=== PATIENT | female | born 1985 | race Caucasian/White ===

== ENCOUNTER 2022-04-03 08:34 | Outpatient (CLI) | payer OTHER, SELFPAY ==
[2022-04-03 13:52] LABS: Basophils Absolute Auto 0.04 K/uL (0.00-0.30); Basophils Percent Auto 0.5 % (0.0-3.0); Eosinophils Absolute Auto 0.11 K/uL (0.00-0.50); Eosinophils Percent Auto 1.4 % (0.0-7.0); Hematocrit 36.6 % (33.0-51.0); Hemoglobin* 11.5 gm/dL (12.0-16.0); Immature Granulocytes Abs Auto 0.01 K/uL (0.00-0.30); Lymphocytes Absolute Auto 1.89 K/uL (0.90-2.90); Lymphocytes Percent Auto 23.4 % (20-44); Mean Corpuscular HGB Conc 31 gm/dL (32-36); Mean Corpuscular Hemoglobin 26 pg (26-34); Mean Corpuscular Volume 82 fL (80-100); Monocytes Percent Auto 5.6 % (0.0-11.0); Neutrophils Absolute Auto 5.56 K/uL (1.7-7.0); Platelet Count* 432 K/uL (140-440); RDW Coefficient of Variation % 13.6 % (11.5-15.5); Red Blood Count 4.49 m/uL (4.00-5.20); White Blood Count* 8.06 K/uL (4.50-11.00)
[2022-04-03 13:59] LABS: Slide Review Reflex No
[2022-04-03 14:43] LABS: Chloride* 105 mmol/L (96-114)
[2022-04-03 14:44] LABS: Potassium* 4.8 mmol/L (3.6-5.1); Sodium* 137 mmol/L (135-149)
[2022-04-03 14:46] LABS: Carbon Dioxide* 22 mmol/L (20-32); Creatinine* 0.5 mg/dL (0.5-1.5); Estimated Glomerular Filt Rate 123 ml/min
[2022-04-03 14:47] LABS: Blood Urea Nitrogen* 15 mg/dL (5-24); Calcium* 9.4 mg/dL (8.4-10.6); Glucose* 94 mg/dL (60-115)
[2022-04-03 15:18] LABS: Ferritin* 14.4 ng/mL (6.24-137.0)
== END 2022-04-03 08:35 | disposition home or self-care (01) ==
PROVIDERS: PCP Family Medicine; Visit Provider Family Medicine
DX: R53.83 Other fatigue (principal); E03.1 Congenital hypothyroidism without goiter; F41.9 Anxiety disorder, unspecified; L30.1 Dyshidrosis [pompholyx]; G43.009 Migraine without aura, not intractable, without status migrainosus; R40.0 Somnolence
CPT/HCPCS: 80048; 82728; 84443; 85025

== ENCOUNTER 2022-04-26 19:55 | Emergency (ER) | payer OTHER, SELFPAY ==
[2022-04-26 20:02] VITALS: BP 106/71; PULSE 78; RESP 18; TEMP 36.6; O2SAT 99; BMI 31.7
[2022-04-26 20:29] VITALS: O2SAT 99
--- NOTE | 2022-04-26 20:44 | ED_ITS ---
HPI - Dizziness General Chief Complaint: Dizziness/Vertigo Stated Complaint: Hypotension Time Seen by Provider: 04/26/22 20:12 History of Present Illness HPI Narrative: 36-year-old woman presenting to the emergency department with concern appears to be of nearly passing out twice. 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 Some low back pain across the low back subsequently felt rather hot diaphoretic ringing ears very intensely, she also says that her ears always ring little bit but this was much more than usual. Lightheaded nauseated. Was not actually dizzy. Vision was a little bit blurry. Did not have chest pain or shortness of breath. Subsequently also noted a pain in her left lower posterior ribs. This apparently is reproducible and somewhat pleuritic. After this initial episode things settled but then happened again though not with the back pain issue. Low back was started by shifting a little bit; she had been on her feet long period time. In this subsequent episode was also noted to be rather white. At that point was taken to the ambulance. Blood pressures were noted to be low. Blood sugar I believe was 97. Blood pressure systolic was in the 90s and she recalls in the 70s as well. At this point she is feeling much better. Still has that pain in the ribs and sense of almost cramping in her upper anterior thighs. Vision remains just a little bit off. Does struggle with chronic low back pain intermittently as noted. Also ?my bowels hate me?. She would consider herself in her normal pattern at this point. Sounds like has some degree of IBS alternating between constipation and diarrhea. otherwise has been in usual state of health. No cough or cold symptoms recently. No fevers. Is not having any abdominal pain. No frequency dysuria urgency. No hematuria No sense of irregular heartbeats. No Family history of nephrolithiasis Related Data Home Medications Medication Instructions Recorded Confirmed levothyroxine 75 mcg tablet 75 mcg PO DAILY 04/02/22 04/02/22 liothyronine 25 mcg tablet 25 mcg PO QAM 04/02/22 04/02/22 polyethylene glycol 3350 17 17 g PO .Bedtime 04/02/22 04/02/22 gram/dose oral powder psyllium husk 3.4 gram/5.4 gram 1 tbsp PO QDAY 04/02/22 04/02/22 oral powder (Metamucil) sennosides 8.6 mg-docusate sodium 2 PO .Bedtime 04/02/22 04/02/22 50 mg tablet Previous Rx's Medication Instructions Recorded dextroamphetamine-amphetamine ER 20 mg PO QAM #30 caps 02/06/22 20 mg 24hr capsule,extend release (Adderall XR) betamethasone, augmented 0.05 % 1 applic topical BID PRN rash #45 04/03/22 topical ointment (Diprolene grams (augmented)) escitalopram oxalate 20 mg tablet 20 mg PO DAILY #90 tabs 04/03/22 magnesium oxide 400 mg (241.3 mg 400 mg PO DAILY #90 tabs 04/03/22 magnesium) tablet sumatriptan succinate 50 mg tablet 50 - 100 mg PO .Daily as needed 04/09/22 PRN migraine headache #10 tabs rizatriptan 10 mg tablet 10 mg PO Q2H PRN migraine headache 04/10/22 #10 tabs Allergies Allergy/AdvReac Type Severity Reaction Status Date / Time Amoxicillin Allergy Mild Hives Uncoded 04/03/22 08:05 Clavulanate Allergy Mild Hives Uncoded 04/03/22 08:05 Blueberry Flavor Allergy Unknown Unknown Uncoded 04/03/22 08:05 Coffee Flavor Allergy Unknown Unknown Uncoded 04/03/22 08:05 Dairy Allergy Unknown blisters Uncoded 04/03/22 08:05 Review of Systems Status of ROS: Reports: 10 or more systems reviewed and unremarkable except as noted in History and below [facility] Medical History ADHD (attention deficit hyperactivity disorder), inattentive type Congenital hypothyroidism (83) Daytime somnolence Dyshidrotic eczema Generalized anxiety disorder (12/30/12) History of gestational diabetes mellitus (GDM) Irritable bowel syndrome Migraine without aura Prediabetes (2019) Surgical History History of bilateral ligation of fallopian tubes (2010) History of section History of colonoscopy (08/11/15) History of endometrial ablation (2012) History of esophagogastroduodenoscopy (EGD) (05/24/15) History of hysteroscopy (04/20/13) History of nasal septoplasty (06/06/17) History of tonsillectomy and adenoidectomy (06/06/17) 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 NAD. A little tired. Skin is warm and dry. No rash apparent. Well perfused peripherally. Moving all extremities without difficulty. Cranial nerves 2-12 intact. No nystagmus Lungs are clear. Palpating than the back it is in the lower left rib area where she does have a little reproducible discomfort. Pleuritic pain here described. Palpation of the low back-areas of discomfort in the sacroiliac joints Cardiovascular with regular rate and rhythm no murmur rub or gallop identified. Abdomen is overweight soft nontender. Normal bowel sounds. Negative Mustapha's and compression of the hips. Const: Vital Signs, click to edit/add: Vital Signs - 24 hr 04/26/22 20:02 04/26/22 21:05 04/26/22 20:29 Temperature 97.9 F Pulse Rate [Right Pulse Oximeter] 78 Pulse Rate [orthos tatic lying] 74 Pulse Rate [orthos tatic sitting] 77 Pulse Rate [orthos tatic standing] 74 Respiratory Rate 18 Blood Pressure [Ri ght Upper Arm] 106/71 Blood Pressure [or thostatic lying] 118/65 Blood Pressure [or thostatic sitting] 109/65 Blood Pressure [or thostatic standing ] 109/68 Pulse Oximetry 99 99 Oxygen Delivery Me thod Room Air 04/27/22 00:37 04/27/22 00:15 04/26/22 22:30 Temperature 97.9 F 97.9 F 97.9 F Pulse Rate [Right Pulse Oximeter] 84 84 81 Pulse Rate [orthos tatic lying] Pulse Rate [orthos tatic sitting] Pulse Rate [orthos tatic standing] Respiratory Rate 18 18 18 Blood Pressure [Ri ght Upper Arm] 120/66 120/66 101/56 L Blood Pressure [or thostatic lying] Blood Pressure [or thostatic sitting] Blood Pressure [or thostatic standing ] Pulse Oximetry 99 99 Oxygen Delivery Me thod Room Air Room Air Course Course Hospital Course: Initiated on IV fluids. Orthostatics were also done. Was initially subtly dizzy and little woozy perhaps going to sitting/standing but vitals were WNL. Reevaluation(s) Reevaluation #1: Sleepy but overall improved Vital Signs Vital signs: Initial Vital Signs Temperature 97.9 F 04/26/22 20:02 Temperature Source Temporal Artery Scan 04/26/22 20:02 Pulse Rate 78 04/26/22 20:02 Pulse Rhythm 04/26/22 20:02 Pulse Strength 0+ Absent 04/26/22 20:02 Respiratory Rate 18 04/26/22 20:02 Blood Pressure 106/71 04/26/22 20:02 Blood Pressure Mean 82 04/26/22 20:02 Blood Pressure Position Sitting 04/26/22 20:02 Pulse Oximetry 99 04/26/22 20:02 Oxygen Delivery Method 04/26/22 20:02 Vital Signs Temperature 97.9 F 04/26/22 20:02 Pulse Rate 78 04/26/22 20:02 Respiratory Rate 18 04/26/22 20:02 Blood Pressure 106/71 04/26/22 20:02 Pulse Oximetry 99 04/26/22 20:02 Oxygen Delivery Method 04/26/22 20:02 Temperature 97.9 F 04/27/22 00:37 Pulse Rate 84 04/27/22 00:37 Respiratory Rate 18 04/27/22 00:37 Blood Pressure 120/66 04/27/22 00:37 Pulse Oximetry 99 04/27/22 00:15 Oxygen Delivery Method 04/27/22 00:15 MDM - Dizziness MDM Narrative Medical decision making narrative: Suspected possibly vasovagal event related to flare of pain. She notes though that the discomfort she had in her back was less than she has experienced before without difficulty here. EKG reviewed by me rate of 65 in normal sinus. White count is little over 14,000. Trace ketones in urine D-dimer was elevated at 0.7. Pulmonary embolus was in differential. haveno other explanation at this point so proceed with CT scan of chest with IV contrast. Thankfully this is negative. I did review these images personally Medical Records Attestation: I reviewed the patient's medical records. Lab Data Attestation: I reviewed the patient's lab results. Labs: Lab Results 04/26/22 04/26/22 04/26/22 Range/Units 20:31 20:51 20:51 WBC (4.50-11.00) K/uL RBC (4.00-5.20) m/uL Hgb (12.0-16.0) gm/dL Hct (33.0-51.0) % MCV (80-100) fL MCH (26-34) pg MCHC (32-36) gm/dL RDW Coeff of Kristen (11.5-15.5) % Plt Count (140-440) K/uL Neut % (Auto) (42.0-72.0) % Lymph % (Auto) (20-44) % [place] % (Auto) (0.0-11.0) % Eos % (Auto) (0.0-7.0) % Baso % (Auto) (0.0-3.0) % Neut # (Auto) (1.7-7.0) K/uL Lymph # (Auto) (0.90-2.90) K/uL [place] # (Auto) (0.00-0.90) K/UL Eos # (Auto) (0.00-0.50) K/uL Baso # (Auto) (0.00-0.30) K/uL Abs Immat Gran (auto) (0.00-0.30) K/uL D-Dimer Quant (PE/DVT) 0.70 H (0.00-0.50) ug/ml Sodium 134 L (135-149) mmol/L Potassium 3.9 (3.6-5.1) mmol/L Chloride 101 (96-114) mmol/L Carbon Dioxide 22 (20-32) mmol/L BUN 13 (5-24) mg/dL Creatinine 0.7 (0.5-1.5) mg/dL Estimated Creat Clear 102.01 Estimated GFR 113 ml/min Glucose 166 H (60-115) mg/dL Calcium 9.1 (8.4-10.6) mg/dL Magnesium 1.9 (1.5-2.6) mg/dL Troponin I (0.01-0.04) ng/mL C-Reactive Protein 0.7 (0.5-1.0) mg/dL Urine Color Yellow (Yellow) Urine Appearance Clear (Clear) Urine pH 6.0 (5.0-8.5) Ur Specific [place] >= 1.030 (1.000-1.030) Urine Protein Negative (Negative) Urine Glucose (UA) Negative (Negative) Urine Ketones Trace A (Negative) Urine Blood Negative (Negative) Urine Nitrite Negative (Negative) Urine Bilirubin Negative (Negative) Urine Urobilinogen 0.2 (0.2-1.0) Ur Leukocyte Esterase Negative (Negative) Urine RBC 0-2 (0-2) Urine WBC 0-2 (0-5) Ur Squamous Epith Cells Few (None-Few) Urine Bacteria Few A (None) Hyaline Casts Moderate A (None-Few) Urine Mucus Few A (None) SARS-CoV-2 (PCR) (Negative) POC Troponin I (0.01-0.04) ng/ml 04/26/22 04/26/22 04/26/22 Range/Units 20:51 20:51 20:51 WBC 14.07 H (4.50-11.00) K/uL RBC 4.33 (4.00-5.20) m/uL Hgb 11.0 L (12.0-16.0) gm/dL Hct 34.7 (33.0-51.0) % MCV 80 (80-100) fL MCH 25 L (26-34) pg MCHC 32 (32-36) gm/dL RDW Coeff of Kristen 13.4 (11.5-15.5) % Plt Count 381 (140-440) K/uL Neut % (Auto) 82.1 H (42.0-72.0) % Lymph % (Auto) 12.7 L (20-44) % [place] % (Auto) 4.3 (0.0-11.0) % Eos % (Auto) 0.4 (0.0-7.0) % Baso % (Auto) 0.4 (0.0-3.0) % Neut # (Auto) 11.60 H (1.7-7.0) K/uL Lymph # (Auto) 1.80 (0.90-2.90) K/uL [place] # (Auto) 0.60 (0.00-0.90) K/UL Eos # (Auto) 0.10 (0.00-0.50) K/uL Baso # (Auto) 0.10 (0.00-0.30) K/uL Abs Immat Gran (auto) 0.02 (0.00-0.30) K/uL D-Dimer Quant (PE/DVT) (0.00-0.50) ug/ml Sodium (135-149) mmol/L Potassium (3.6-5.1) mmol/L Chloride (96-114) mmol/L Carbon Dioxide (20-32) mmol/L BUN (5-24) mg/dL Creatinine (0.5-1.5) mg/dL Estimated Creat Clear Estimated GFR ml/min Glucose (60-115) mg/dL Calcium (8.4-10.6) mg/dL Magnesium (1.5-2.6) mg/dL Troponin I < 0.01 L (0.01-0.04) ng/mL C-Reactive Protein (0.5-1.0) mg/dL Urine Color (Yellow) Urine Appearance (Clear) Urine pH (5.0-8.5) Ur Specific [place] (1.000-1.030) Urine Protein (Negative) Urine Glucose (UA) (Negative) Urine Ketones (Negative) Urine Blood (Negative) Urine Nitrite (Negative) Urine Bilirubin (Negative) Urine Urobilinogen (0.2-1.0) Ur Leukocyte Esterase (Negative) Urine RBC (0-2) Urine WBC (0-5) Ur Squamous Epith Cells (None-Few) Urine Bacteria (None) Hyaline Casts (None-Few) Urine Mucus (None) SARS-CoV-2 (PCR) (Negative) POC Troponin I 0.00 L (0.01-0.04) ng/ml 04/26/22 Range/Units 22:07 WBC (4.50-11.00) K/uL RBC (4.00-5.20) m/uL Hgb (12.0-16.0) gm/dL Hct (33.0-51.0) % MCV (80-100) fL MCH (26-34) pg MCHC (32-36) gm/dL RDW Coeff of Kristen (11.5-15.5) % Plt Count (140-440) K/uL Neut % (Auto) (42.0-72.0) % Lymph % (Auto) (20-44) % [place] % (Auto) (0.0-11.0) % Eos % (Auto) (0.0-7.0) % Baso % (Auto) (0.0-3.0) % Neut # (Auto) (1.7-7.0) K/uL Lymph # (Auto) (0.90-2.90) K/uL [place] # (Auto) (0.00-0.90) K/UL Eos # (Auto) (0.00-0.50) K/uL Baso # (Auto) (0.00-0.30) K/uL Abs Immat Gran (auto) (0.00-0.30) K/uL D-Dimer Quant (PE/DVT) (0.00-0.50) ug/ml Sodium (135-149) mmol/L Potassium (3.6-5.1) mmol/L Chloride (96-114) mmol/L Carbon Dioxide (20-32) mmol/L BUN (5-24) mg/dL Creatinine (0.5-1.5) mg/dL Estimated Creat Clear Estimated GFR ml/min Glucose (60-115) mg/dL Calcium (8.4-10.6) mg/dL Magnesium (1.5-2.6) mg/dL Troponin I (0.01-0.04) ng/mL C-Reactive Protein (0.5-1.0) mg/dL Urine Color (Yellow) Urine Appearance (Clear) Urine pH (5.0-8.5) Ur Specific [place] (1.000-1.030) Urine Protein (Negative) Urine Glucose (UA) (Negative) Urine Ketones (Negative) Urine Blood (Negative) Urine Nitrite (Negative) Urine Bilirubin (Negative) Urine Urobilinogen (0.2-1.0) Ur Leukocyte Esterase (Negative) Urine RBC (0-2) Urine WBC (0-5) Ur Squamous Epith Cells (None-Few) Urine Bacteria (None) Hyaline Casts (None-Few) Urine Mucus (None) SARS-CoV-2 (PCR) Negative SARS-CoV-2 (Negative) POC Troponin I (0.01-0.04) ng/ml Discharge Plan Discharge Clinical Impression: Pre-syncope, Sacroiliac pain Patient Disposition: Home w/ Parent or Adult Condition: Improved Additional Instructions: Continue to stay well hydrated. Take care with transitions. Return for recurrence, chest pain, persistent shortness of breath, associated fever. See handout on sacroiliac pain -- this might be helpful to you. Prescriptions: No Action polyethylene glycol 3350 17 gram/dose powder 17 g PO .Bedtime sennosides-docusate sodium 8.6-50 mg tablet 2 PO .Bedtime Metamucil 3.4 gram/5.4 gram powder 1 tbsp PO QDAY Rx Instructions: mix into at least 8 oz of water or juice before administering levothyroxine 75 mcg tablet 75 mcg PO DAILY liothyronine 25 mcg tablet 25 mcg PO QAM betamethasone, augmented [Diprolene (augmented)] 0.05 % ointment 1 applic topical BID PRN (Reason: rash) Qty: 45 0RF escitalopram oxalate 20 mg tablet 20 mg PO DAILY Qty: 90 3RF magnesium oxide 400 mg (241.3 mg magnesium) tablet 400 mg PO DAILY Qty: 90 3RF dextroamphetamine-amphetamine [Adderall XR] 20 mg capsule,extended release 24hr 20 mg PO QAM Qty: 30 0RF sumatriptan succinate 50 mg tablet 50 - 100 mg PO .Daily as needed PRN (Reason: migraine headache) Qty: 10 5RF Rx Instructions: ONE TAB AT ONSET OF HEADACHE, MAY REPEAT Q2H PRN, MAX 200 MG/24 HRS rizatriptan 10 mg tablet 10 mg PO Q2H PRN (Reason: migraine headache) Qty: 10 5RF Rx Instructions: TAKE ONE TAB AT ONSET OF HEADACHE, MAY REPEAT Q2H PRN, MAX 30 MG/24 HRS Follow Up/Referrals: Attila Bradford MD [Primary Care Provider] - Stand Alone Forms: [employer] Info Instructions
[2022-04-26 21:03] LABS: Basophils Percent Auto 0.4 % (0.0-3.0); Eosinophils Percent Auto 0.4 % (0.0-7.0); Hematocrit 34.7 % (33.0-51.0); Immature Granulocytes Abs Auto 0.02 K/uL (0.00-0.30); Lymphocytes Percent Auto 12.7 % (20-44); Mean Corpuscular HGB Conc 32 gm/dL (32-36); Mean Corpuscular Hemoglobin 25 pg (26-34); Mean Corpuscular Volume 80 fL (80-100); Monocytes Percent Auto 4.3 % (0.0-11.0); Neutrophils Percent Auto 82.1 % (42.0-72.0); Platelet Count* 381 K/uL (140-440); RDW Coefficient of Variation % 13.4 % (11.5-15.5); Red Blood Count 4.33 m/uL (4.00-5.20); White Blood Count* 14.07 K/uL (4.50-11.00)
[2022-04-26 21:05] VITALS: BP 109/65; BP 109/68; BP 118/65; PULSE 74; PULSE 77
[2022-04-26] MEDS: 0.9 % SODIUM CHLORIDE 1000 ml 1,000 ML IV (21:07)
[2022-04-26 21:11] LABS: Slide Review Reflex No
[2022-04-26 21:16] LABS: Chloride* 101 mmol/L (96-114); Sodium* 134 mmol/L (135-149)
[2022-04-26 21:17] LABS: Potassium* 3.9 mmol/L (3.6-5.1)
[2022-04-26 21:19] LABS: Creatinine* 0.7 mg/dL (0.5-1.5); Est. Creatinine Clearance* 102.01; Estimated Glomerular Filt Rate 113 ml/min
[2022-04-26 21:20] LABS: Blood Urea Nitrogen* 13 mg/dL (5-24); Calcium* 9.1 mg/dL (8.4-10.6); Carbon Dioxide* 22 mmol/L (20-32); Glucose* 166 mg/dL (60-115); Magnesium* 1.9 mg/dL (1.5-2.6)
[2022-04-26 21:23] LABS: C Reactive Protein* 0.7 mg/dL (0.5-1.0)
[2022-04-26 21:32] LABS: Troponin I* < 0.01 ng/mL (0.01-0.04)
[2022-04-26 21:35] LABS: Appearance Urine Clear (Clear); Bilirubin Urine Negative (Negative); Blood Urine Negative (Negative); Color Urine Yellow (Yellow); Glucose Urine Negative (Negative); Ketones Urine Trace (Negative); Leukocyte Esterase Urine Negative (Negative); Nitrite Urine Negative (Negative); Protein Urine Negative (Negative); Specific Gravity Urine >= 1.030 (1.000-1.030); Urobilinogen Urine 0.2 (0.2-1.0)
[2022-04-26 21:54] LABS: Bacteria Urine Few; RBC Urine 0-2 (0-2); Squamous Epithelial Cell Urine Few (None-Few); WBC Urine 0-2 (0-5)
[2022-04-26 21:55] LABS: Hyaline Casts Urine Moderate (None-Few); Mucus Urine Few
[2022-04-26 22:30] VITALS: BP 101/56; PULSE 81; RESP 18; TEMP 36.6; O2SAT 99
--- NOTE | 2022-04-26 22:31 | CRLHL7_ITS ---
For Patients: As a result of the Century Cures Act, medical imaging exams and procedure reports are released immediately into your electronic medical record. You may view this report before your referring provider. If you have questions, please contact your health care provider. INDICATION: Presyncopal episode. Left pleuritic lower chest pain. COMPARISON: None available TECHNIQUE: CT examination of the chest was performed with the uneventful intravenous administration of 95 cc of Isovue 370/3 1.5 while 3 mm thick axial sections were obtained from above the apices of the lungs through the mid renal level. Please note that all CT scans at this facility use dose modulation, iterative reconstruction, and/or weight-based dosing when appropriate to reduce radiation dose to as low as reasonably achievable. FINDINGS: : There is no sign of pulmonary embolism, with normal enhancement and branching of the pulmonary arteries. The lungs are clear with no sign of significant infiltrate or mass. There is no sign of mediastinal or hilar mass or adenopathy. The heart is normal in appearance for the patient`s age. There is age appropriate appearance of the thoracic aorta and ascending great vessels. There is no sign of supraclavicular or axillary mass or adenopathy. The visualized superior liver, spleen, pancreas, kidneys, and adrenals are normal in appearance. The osseous structures are normal in appearance for the patient`s age. IMPRESSION: Nothing seen to correlate with the history of left lower pleuritic chest pain. No sign of pulmonary embolism. Normal CT of the chest with contrast. Please note that all CT scans at this facility use dose modulation, iterative reconstruction, and/or weight-based dosing when appropriate to reduce radiation dose to as low as reasonably achievable. Dictated by Vimal Pike MD @ 04/27/2022 12:06:08 AM (Electronically Signed)
[2022-04-26 23:04] LABS: SARS PCR* Negative SARS-CoV-2 (Negative)
[2022-04-27 00:15] VITALS: BP 120/66; PULSE 84; RESP 18; TEMP 36.6; O2SAT 99
[2022-04-27 00:37] VITALS: BP 120/66; PULSE 84; RESP 18; TEMP 36.6
== END 2022-04-27 00:39 | disposition home or self-care (01) ==
PROVIDERS: Emergency Provider Family Medicine; PCP Family Medicine
DX: R55 Syncope and collapse (principal); M53.3 Sacrococcygeal disorders, not elsewhere classified
CPT/HCPCS: 36415; 71260; 80048; 81001; 83735; 84484; 85025; 85379; 86140; 87086; 87635; 93005; 94761; 99284; 99285; J7030; Q9967

== ENCOUNTER 2022-05-21 20:00 | Outpatient (CLI) | payer OTHER, SELFPAY ==
--- NOTE | 2022-07-02 12:18 | W.PM.SLEEP ---
Sleep Study Details Details Interpreting Provider: Romel Singh MD Date of Sleep Study: 05/21/22 Sleep Study Details: STUDY TYPE:? Home ? BMI:? 32.4 ORDERING PROVIDER:? Sanchez INDICATION:? Concerns about ? SLEEP SUMMARY:? Sleep apnea RESPIRATORY SUMMARY:? AHI 5.4, minimal positional variation. Low oxygen 88 0.1% of study oxygen less than 90% Minimal to no snoring PERIODIC LIMB MOVEMENTS OF SLEEP:? Not recorded CARDIAC:? Range 58-109, mean 74.2 IMPRESSION:? Mild obstructive sleep apnea RECOMMENDATION: Treatment options for this patient would include CPAP AutoSet 4-17, dental appliance and/or airway expansion surgery.
== END 2022-05-21 20:01 | disposition home or self-care (01) ==
PROVIDERS: PCP Family Medicine; Visit Provider Family Medicine
DX: G47.33 Obstructive sleep apnea (adult) (pediatric) (principal)
CPT/HCPCS: 95806

== ENCOUNTER 2023-01-27 13:31 | Outpatient (CLI) | payer OTHER, SELFPAY | END 2023-01-27 13:32 | disposition home or self-care (01) | PROVIDERS: PCP Family Medicine; Visit Provider Family Medicine | DX: R73.03 Prediabetes (principal); E03.1 Congenital hypothyroidism without goiter; E61.1 Iron deficiency | CPT/HCPCS: 80048; 84443; 85025 ==

== ENCOUNTER 2023-09-10 12:07 | Outpatient (CLI) | payer OTHER, SELFPAY | END 2023-09-10 12:08 | disposition home or self-care (01) | PROVIDERS: PCP Family Medicine; Visit Provider Family Medicine | DX: E03.1 Congenital hypothyroidism without goiter (principal); Z13.220 Encounter for screening for lipoid disorders; E11.9 Type 2 diabetes mellitus without complications; Z79.85 Long-term (current) use of injectable non-insulin antidiabetic drugs | CPT/HCPCS: 80061; 84443 ==

== ENCOUNTER 2024-01-28 07:51 | Outpatient (CLI) | payer OTHER, SELFPAY ==
--- NOTE | 2024-01-28 08:15 | CRLHL7_ITS ---
For Patients: As a result of the Century Cures Act, medical imaging exams and procedure reports are released immediately into your electronic medical record. You may view this report before your referring provider. If you have questions, please contact your health care provider. BILATERAL SCREENING MAMMOGRAM WITH COMPUTER-AIDED DETECTION AND TOMOSYNTHESIS TECHNIQUE: CC and MLO views were obtained. These mammographic images have been obtained using full-field digital technique. These mammographic images were interpreted with the benefit of computer-aided detection. Breast tomosynthesis was used in this interpretation. COMPARISON FILM: None. This is a baseline study. FINDINGS: The breasts are heterogeneously dense, which may obscure small masses. IMPRESSION: There is no radiographic evidence for malignancy. ASSESSMENT: BI-RADS Category 1: Negative RECOMMENDATION: Routine screening mammogram in 1 year. A lay language report of this examination will be provided to the patient. ATTILA MURCIA M.D. Diagnostic Radiologist [email or web address] Transcribed: 2:[address]/Dictated by: Attila Murcia MD @ 01/28/2024 12:25:00 PM (Electronically Signed)
== END 2024-01-28 07:52 | disposition home or self-care (01) ==
LOC: MAMMO 07:52
PROVIDERS: PCP Family Medicine; Visit Provider Registered Nurse
DX: Z12.31 Encounter for screening mammogram for malignant neoplasm of breast (principal); R92.2 Inconclusive mammogram
CPT/HCPCS: 77063; 77067

== ENCOUNTER 2024-03-17 11:11 | Outpatient (CLI) | payer OTHER, SELFPAY ==
[2024-03-17 14:21] LABS: Bacterial Vaginosis* Negative (Negative); Candida glab/krus NOT DETECTED (No Detected); Candida species NOT DETECTED (No Detected); Trichomonas vaginalis NOT DETECTED (No Detected)
[2024-03-21 04:02] LABS: HSV 1 Subtype by PCR Not Detected; HSV 2 Subtype by PCR Not Detected; Herpes Simplex Subtype Source Tissue
== END 2024-03-17 11:12 | disposition home or self-care (01) ==
PROVIDERS: PCP Family Medicine; Visit Provider Registered Nurse
DX: N89.8 Other specified noninflammatory disorders of vagina (principal)
CPT/HCPCS: 81513; 87481; 87529; 87661

== ENCOUNTER 2024-11-22 08:22 | Outpatient (CLI) | payer OTHER, SELFPAY | END 2024-11-22 08:23 | disposition home or self-care (01) | PROVIDERS: PCP Family Medicine; Visit Provider Family Medicine | DX: E03.1 Congenital hypothyroidism without goiter (principal); E11.9 Type 2 diabetes mellitus without complications; R53.83 Other fatigue; Z13.0 Encounter for screening for diseases of the blood and blood-forming organs and certain disorders involving the immune mechanism | CPT/HCPCS: 80053; 84439; 84443; 85025 ==